=== PATIENT | male | born 1940 | race Two or more races ===

== ENCOUNTER 2020-03-02 11:11 | Outpatient (CLI) | payer OTHER | END 2020-03-02 11:16 | disposition home or self-care (01) | LOC: RAD 11:11 | DX: J16.8 Pneumonia due to other specified infectious organisms (principal); Z20.828 Contact with and (suspected) exposure to other viral communicable diseases; R04.2 Hemoptysis ==

== ENCOUNTER 2020-03-06 13:26 | Emergency (ER) | payer OTHER ==
[~2020-03-06] VITALS: Ht 177.8 cm; Wt 77.1 kg
[2020-03-06] MEDS ORDERED: SIMVASTATIN40 MG PO (13:55)
[2020-03-06] MEDS ORDERED: DEXAMETHASONE2 MG PO (13:56)
[2020-03-06] MEDS ORDERED: DECADRON4 MG (13:57)
[2020-03-06] MEDS ORDERED: METOPROLOL SUCC50 MG PO (13:57)
[2020-03-06] MEDS ORDERED: CLOPIDOGREL BIS75 MG PO (13:58)
[2020-03-06] MEDS ORDERED: FAMOTIDINE20 MG PO (13:58)
[2020-03-06] MEDS ORDERED: TAMSULOSIN HCL0.4 MG PO (13:59)
[2020-03-06] MEDS ORDERED: METFORMIN HCL500 M4 PO (13:59)
[2020-03-06] MEDS ORDERED: DECADRON6 MG PO (22:54)
[2020-03-06] MEDS ORDERED: SYMBICORT 16010.2 GM IH (22:54)
[2020-03-06] MEDS ORDERED: AIRBORNE EFFER1 EACH PO (22:54)
== END 2020-03-06 22:34 | disposition home or self-care (01) ==
LOC: ER 13:26
DX: U07.1 COVID-19 (principal); R06.02 Shortness of breath